=== PATIENT | male | born 1995 | race Caucasian/White ===

== ENCOUNTER 2016-09-10 08:35 | Emergency (ER) | payer BC ==
[~2016-09-10] VITALS: Ht 182.9 cm; Wt 99.8 kg
[~2016-09-10 08:35] MED LIST: BENADRYL25 MG PO; CEPHALEXIN500 MG PO; IBUPROFEN200 M1 PO; KEFLEX500 MG PO; KETOTIFEN FUMARA5 ML OU; NORCO 7.5-3251 EACH PO; OMEPRAZOLE20 MG PO; PREDNISONE20 MG PO; ULTRAM50 MG PO
[2016-09-10] MEDS ORDERED: ONDANSETRON ODT8 MG PO (10:37)
== END 2016-09-10 10:47 | disposition home or self-care (01) ==
LOC: ED 08:35
DX: R10.13 Epigastric pain (principal); R11.2 Nausea with vomiting, unspecified; Z88.2 Allergy status to sulfonamides; F17.200 Nicotine dependence, unspecified, uncomplicated
CPT/HCPCS: 74177; 80053; 81001; 82150; 83690; 85025; 96361; 96374; 96375; 99284; J1170; J1885; J2405; J7030; Q9967

== ENCOUNTER 2020-07-22 06:07 | Emergency (ER) | payer OTHER ==
[~2020-07-22] VITALS: Ht 182.9 cm; Wt 95.0 kg
[~2020-07-22 06:07] MED LIST changes: +ONDANSETRON ODT8 MG PO
[2020-07-22] MEDS ORDERED: REGLAN10 MG PO (10:10)
== END 2020-07-22 10:57 | disposition home or self-care (01) ==
LOC: ED 06:07
DX: R10.33 Periumbilical pain (principal); R10.30 Lower abdominal pain, unspecified; R11.10 Vomiting, unspecified; F17.200 Nicotine dependence, unspecified, uncomplicated; Z91.030 Bee allergy status; Z88.2 Allergy status to sulfonamides
CPT/HCPCS: 74177; 80053; 81001; 83690; 85025; 96375; 99284-25; J1170; J1790; J2405; J7030; Q9967

== ENCOUNTER 2023-11-28 12:28 | Emergency (ER) | payer SELFPAY ==
[~2023-11-28] VITALS: Ht 182.9 cm; Wt 90.0 kg
[~2023-11-28 12:28] MED LIST changes: +REGLAN10 MG PO
--- OUTSIDE RECORDS SUMMARY | 2023-11-28 12:31 | XMS ---
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 E.Lashaun VISIT COUNT (12 MO.) [address] [place] [address] [place] Dave Wise TOTAL 2 NOTE: Visits indicate total known visits. ED/UCC VISIT TRACKING (12 MO.) 11/28/2023 12:28 [facility] TYPE: Emergency COMPLAINT: - ABDOMINAL PAIN 11/25/2023 10:13 [facility] TYPE: Emergency DIAGNOSES: - Dehydration - Dehydration - Nausea with vomiting, unspecified - Nausea with vomiting, unspecified - abd px - Abdominal Pain INPATIENT VISIT TRACKING (12 MO.) No inpatient visits to display in this time frame [email or web address]
[2023-11-28] MEDS ORDERED: SODIUM CHLORIDE 0.9% 1,000 ML IV ONE (15:00)
[2023-11-28] MEDS ORDERED: ondansetron HCL 4 MG/2 ML VIAL IV ONE (15:00)
[2023-11-28] MEDS ORDERED: KETOROLAC TROMETHAMINE 30 MG/ML VIAL IV ONE (15:00)
[2023-11-28 15:18] LABS: BILIRUBIN, URINE NEGATIVE (negative); BLOOD/HGB, URINE NEGATIVE (Negative); KETONE, URINE NEGATIVE (Negative); LEUK ESTERASE, URINE NEGATIVE (negative); NITRITE, URINE NEGATIVE (negative); PH, URINE 6.5 (5-7)
[2023-11-28 15:18] LABS: BASOPHILS 0.5 % (0-2); EOSINOPHILS 1.5 % (0-6); HEMATOCRIT 44.7 % (35.0-50.0); HEMOGLOBIN 15.2 g/dL (12.0-18.0); MCH 30.5 (27-36); MCV 89.8 fl (81-99); MONOCYTES 10.7 % (0-12); NEUTROPHILS 41.3 % (39-80); PLATELET COUNT 227 K/uL (140-440); RBC 4.98 M/ul (4.3-5.7); RDW 14.2 (10.5-15.0)
[2023-11-28 15:33] LABS: ALBUMIN/GLOBULIN RATIO 1.25 (1.1-2.4); ANION GAP 11.8 (7-21); BILIRUBIN, TOTAL 0.8 ng/dL (0.2-1.0); CALCIUM 8.8 mg/dL (8.5-10.1); POTASSIUM 3.8 mmol/L (3.5-5.1); PROTEIN, TOTAL 7.2 g/dL (6.4-8.2)
[2023-11-28 15:33] LABS: AMPHETAMINES, URINE NEGATIVE (NEGATIVE); BARBITURATES, URINE NEGATIVE (NEGATIVE); BENZODIAZEPINE, URINE NEGATIVE (NEGATIVE); BUPRENORPHINE, URINE NEGATIVE (NEGATIVE); CANNABINOID, URINE POSITIVE (NEGATIVE); COCAINE, URINE NEGATIVE (NEGATIVE); ECSTASY, URINE NEGATIVE (NEGATIVE); FENTANYL, URINE NEGATIVE (NEGATIVE); METHADONE, URINE NEGATIVE (NEGATIVE); OPIATES, URINE NEGATIVE (NEGATIVE); OXYCODONE, URINE NEGATIVE (NEGATIVE); PHENCYCLIDINE, URINE NEGATIVE (NEGATIVE)
[2023-11-28 16:50] VITALS: BP 120/75
== END 2023-11-28 16:55 | disposition home or self-care (01) ==
LOC: ED 12:28
PROVIDERS: Emergency Medicine
DX: R10.9 Unspecified abdominal pain (principal); F12.90 Cannabis use, unspecified, uncomplicated; F17.200 Nicotine dependence, unspecified, uncomplicated; Z91.038 Other insect allergy status; Z88.2 Allergy status to sulfonamides
CPT/HCPCS: 36415; 74176; 80053; 80307; 81003; 83690; 85025; 99284-25

== ENCOUNTER 2024-08-03 06:12 | Emergency (ER) | payer SELFPAY ==
[~2024-08-03] VITALS: Ht 182.9 cm; Wt 89.3 kg
[2024-08-03] MEDS ORDERED: SODIUM CHLORIDE 0.9% 500 ML IV ONE (06:30)
[2024-08-03] MEDS ORDERED: ondansetron HCL 4 MG/2 ML VIAL IV ONE (06:30)
[2024-08-03 06:39] LABS: BASOPHILS 0.1 % (0.2-1.2); EOSINOPHILS 0 % (0.8-7.0); HEMATOCRIT 45.1 % (40.1-51.0); HEMOGLOBIN 16.1 g/dL (13.7-17.5); LYMPHOCYTES 14.2 % (21.8-53.1); MCH 29.8 PG (25.7-32.2); MCHC 35.7 g/dL (32.3-36.5); MCV 83.5 fL (79.0-92.2); MONOCYTES 8.4 % (5.3-12.2); PLATELET COUNT 293 K/uL (163-337)
[2024-08-03 06:56] LABS: ALBUMIN 4.7 g/dL (3.4-5.0); ALBUMIN/GLOBULIN RATIO 1.24 (1.1-2.4); ANION GAP 12.8 (7-21); BILIRUBIN, TOTAL 1.2 mg/dL (0.2-1.0); BUN/CREATININE RATIO 14.17 (6.0-28.6); CALCIUM 9.9 mg/dL (8.5-10.1); CREATININE, SERUM 1.34 mg/dL (0.70-1.30); POTASSIUM 2.8 mmol/L (3.5-5.1); PROTEIN, TOTAL 8.5 g/dL (6.4-8.2)
[2024-08-03] MEDS ORDERED: POTASSIUM CHLORIDE 10 MEQ/100 ML BAG IV SCH (07:30)
[2024-08-03] MEDS ORDERED: SUCRALFATE 1 GM TAB PO ONE (07:45)
[2024-08-03] MEDS ORDERED: diphenhydrAMINE HCL 50 MG/ML VIAL IV ONE (07:45)
[2024-08-03] MEDS ORDERED: PANTOPRAZOLE SODIUM 40 MG/10 ML VIAL IV ONE (07:45)
[2024-08-03] MEDS ORDERED: METOCLOPRAMIDE HCL 10 MG/2 ML SDV IV ONE (07:45)
[2024-08-03] MEDS ORDERED: OMEPRAZOLE40 MG PO (09:21)
[2024-08-03] MEDS ORDERED: ONDANSETRON ODT4 MG PO (09:21)
[2024-08-03] MEDS ORDERED: CARAFATE1 GM PO (09:21)
[2024-08-03 11:18] VITALS: BP 136/108
== END 2024-08-03 11:18 | disposition home or self-care (01) ==
LOC: ED 06:12
PROVIDERS: Internal Medicine
DX: R10.9 Unspecified abdominal pain (principal); G89.29 Other chronic pain; E87.6 Hypokalemia; R11.2 Nausea with vomiting, unspecified; R19.7 Diarrhea, unspecified; F17.200 Nicotine dependence, unspecified, uncomplicated; Z88.2 Allergy status to sulfonamides; Z91.030 Bee allergy status
CPT/HCPCS: 36415; 80053; 83735; 85025; 96361; 96365; 96375; 99284-25; J1200; J2405; J2470; J2765; J3480; J7040

== ENCOUNTER 2024-08-05 14:58 | Emergency (ER) | payer SELFPAY ==
[~2024-08-05] VITALS: Ht 182.9 cm; Wt 88.0 kg
[~2024-08-05 14:58] MED LIST changes: +CARAFATE1 GM PO; +OMEPRAZOLE40 MG PO; +ONDANSETRON ODT4 MG PO
--- OUTSIDE RECORDS SUMMARY | 2024-08-05 15:05 | XMS ---
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 EJaison VISIT COUNT (12 MO.) [address] [address] [place] [facility] [place] TOTAL 4 NOTE: Visits indicate total known visits. ED/C VISIT TRACKING (12 MO.) 08/05/2024 14:59 [facility] TYPE: Emergency COMPLAINT: - VOMITING 08/03/2024 06:13 [facility] TYPE: Emergency COMPLAINT: - VOMITING DIAGNOSES: - Allergy status to sulfonamides - Bee allergy status - Diarrhea, unspecified - Hypokalemia - Nausea with vomiting, unspecified - Nicotine dependence, unspecified, uncomplicated - Other chronic pain - Unspecified abdominal pain 11/28/2023 12:28 [facility] TYPE: Emergency COMPLAINT: - ABDOMINAL PAIN DIAGNOSES: - Allergy status to sulfonamides - Cannabis use, unspecified, uncomplicated - Nicotine dependence, unspecified, uncomplicated - Other insect allergy status - Unspecified abdominal pain 11/25/2023 10:13 [facility] TYPE: Emergency DIAGNOSES: - Dehydration - Dehydration - Nausea with vomiting, unspecified - Nausea with vomiting, unspecified - abd px - Abdominal Pain INPATIENT VISIT TRACKING (12 MO.) No inpatient visits to display in this time frame [email or web address]
[2024-08-05] MEDS ORDERED: ondansetron HCL 4 MG/2 ML VIAL IV ONE (15:45)
[2024-08-05 15:57] LABS: BASOPHILS 0.2 % (0.2-1.2); EOSINOPHILS 0.1 % (0.8-7.0); HEMATOCRIT 44.6 % (40.1-51.0); HEMOGLOBIN 16.1 g/dL (13.7-17.5); LYMPHOCYTES 26.2 % (21.8-53.1); MCH 29.7 PG (25.7-32.2); MCHC 36.1 g/dL (32.3-36.5); MCV 82.1 fL (79.0-92.2); MONOCYTES 12.7 % (5.3-12.2); NEUTROPHILS 60.7 % (34.0-67.9); PLATELET COUNT 301 K/uL (163-337); RBC 5.43 M/uL (4.63-6.08)
[2024-08-05] MEDS ORDERED: SODIUM CHLORIDE 0.9% 1,000 ML IV PRN (16:00)
[2024-08-05 16:11] LABS: ALBUMIN 4.3 g/dL (3.4-5.0); ALBUMIN/GLOBULIN RATIO 1.23 (1.1-2.4); ANION GAP 15.8 (7-21); BILIRUBIN, TOTAL 1.5 mg/dL (0.2-1.0); BUN/CREATININE RATIO 14.16 (6.0-28.6); CALCIUM 9.3 mg/dL (8.5-10.1); CREATININE, SERUM 1.2 mg/dL (0.70-1.30); MAGNESIUM 2.5 mg/dL (1.8-2.4); POTASSIUM 2.8 mmol/L (3.5-5.1); PROTEIN, TOTAL 7.8 g/dL (6.4-8.2)
[2024-08-05 16:32] LABS: BILIRUBIN, URINE POSITIVE (negative); BLOOD/HGB, URINE NEGATIVE (Negative); KETONE, URINE >=80 (Negative); LEUK ESTERASE, URINE NEGATIVE (negative); NITRITE, URINE NEGATIVE (negative); PH, URINE 6.5 (5-7)
[2024-08-05] MEDS ORDERED: POTASSIUM CHLORIDE 10 MEQ/100 ML BAG IV SCH (18:00)
[2024-08-05] MEDS ORDERED: AMITRIPTYLINE H25 MG PO (18:59)
[2024-08-05] MEDS ORDERED: AMITRIPTYLINE HCL 25 MG TAB PO ONE (19:00)
[2024-08-05 19:45] VITALS: BP 141/85
== END 2024-08-05 19:47 | disposition home or self-care (01) ==
LOC: ED 14:58
PROVIDERS: Emergency Medicine
DX: R11.15 Cyclical vomiting syndrome unrelated to migraine (principal); F17.200 Nicotine dependence, unspecified, uncomplicated; Z91.030 Bee allergy status; Z88.2 Allergy status to sulfonamides; Z79.899 Other long term (current) drug therapy; Z90.89 Acquired absence of other organs
CPT/HCPCS: 36415; 80053; 81003; 83735; 85025; 96361; 96365; 96375; 99284-25; J2405; J3480; J7030